=== PATIENT | male | born 1980 | race African-American/Black ===

== ENCOUNTER 2022-03-06 11:54 | Inpatient (IN) | payer OTHER ==
[2022-03-06 13:17] VITALS: BMI 25.7
[2022-03-06] MEDS ORDERED: NALOXONE HCL (KLOXXADO) 8 MG SPRAY NS PRN (15:38)
[2022-03-06] MEDS ORDERED: DICYCLOMINE HCL 10 MG CAPSULE PO PRN (15:38)
[2022-03-06] MEDS ORDERED: ACETAMINOPHEN 325 MG TABLET (FP) PO PRN ×2 (15:38)
[2022-03-06] MEDS ORDERED: IBUPROFEN 600 MG TABLET (FP) PO PRN (15:38)
[2022-03-06] MEDS ORDERED: NICOTINE 10 MG CARTRIDGE (INHALER) IH PRN (15:38)
[2022-03-06] MEDS ORDERED: BISMUTH SUBSALICYLATE 262 MG/15 ML BTL PO PRN (15:38)
[2022-03-06] MEDS ORDERED: ONDANSETRON *ODT* 4 MG TABLET SL PRN (15:38)
[2022-03-06] MEDS ORDERED: MAGNESIUM HYDROX 2400MG/30ML ORAL SUSPENSION 30 ML CUP PO PRN (15:38)
[2022-03-06] MEDS ORDERED: MAGNESIUM CITRATE 300 ML BOTTLE PO PRN (15:38)
[2022-03-06] MEDS ORDERED: LOPERAMIDE HCL 2 MG CAPSULE PO PRN (15:38)
[2022-03-06] MEDS ORDERED: MAG HYDROX/AL HYDROX/SIMETH 30 ML UNIT-DOSE CUP PO PRN (15:38)
[2022-03-06] MEDS ORDERED: BENZOCAINE/MENTHOL (CHLORASEPTIC ) LOZENGE MM PRN (15:38)
[2022-03-06] MEDS ORDERED: IBUPROFEN 400 MG TABLET (FP) PO PRN (15:38)
[2022-03-06] MEDS: METHOCARBAMOL 500 MG TABLET PO PRN (16:59)
[2022-03-06] MEDS: hydrOXYzine PAMOATE 25 MG CAPSULE (FP) PO PRN (16:59)
[2022-03-06] MEDS: MELATONIN 5 MG TABLETS PO SCH (23:54)
[2022-03-06] MEDS: THIAMINE HCL 100 MG TABLET (FP) PO SCH (23:54)
[2022-03-07] MEDS ORDERED: chlordiazePOXIDE HCL 25 MG CAPSULE PO PRN (09:24)
[2022-03-07 10:14] LABS: HEMATOCRIT 36.1 % (35.4-49); HEMOGLOBIN 11.3 GM/dL (11.7-16.9); MCH 27.6 pg (25.7-33.7); MCHC 31.2 g/dl (32.0-35.9); MEAN CELL VOLUME 88.5 fl (80-96); MEAN PLT VOLUME 8.2 fl (7.5-11.1); PLATELET COUNT 301 10^3/uL (134-434); RBC 4.08 M/mm3 (4.00-5.60); RDW 18.4 % (11.9-15.9); WHITE BLOOD COUNT 4.8 K/mm3 (4.0-10.0)
[2022-03-07] MEDS: PRENATAL VITAMINS W/ FOLIC ACID TABLET (FP) PO SCH (10:43)
[2022-03-07] MEDS: chlordiazePOXIDE HCL 25 MG CAPSULE PO SCH ×3 (10:50→23:03)
[2022-03-07] MEDS: METHOCARBAMOL 500 MG TABLET PO PRN ×2 (10:51→23:13)
[2022-03-07] MEDS: hydrOXYzine PAMOATE 25 MG CAPSULE (FP) PO PRN (10:51)
[2022-03-07 11:08] LABS: CALCIUM 9.1 mg/dL (8.5-10.1)
[2022-03-07 11:10] LABS: ALBUMIN 2.8 g/dl (3.4-5.0)
[2022-03-07 11:13] LABS: CREATININE 0.9 mg/dL (0.55-1.3)
[2022-03-07 11:14] LABS: BILIRUBIN,TOTAL 0.7 mg/dL (0.2-1); TOT PROT 6.6 g/dl (6.4-8.2)
[2022-03-07 11:16] LABS: BLOOD UREA NITROGEN 14.9 mg/dL (7-18)
[2022-03-07] MEDS: THIAMINE HCL 100 MG TABLET (FP) PO SCH (23:02)
[2022-03-07] MEDS: MELATONIN 5 MG TABLETS PO SCH (23:37)
[2022-03-08] MEDS: chlordiazePOXIDE HCL 25 MG CAPSULE PO SCH ×2 (06:42→10:59)
[2022-03-08 09:33] VITALS: TEMP 96.1
[2022-03-08] MEDS: PRENATAL VITAMINS W/ FOLIC ACID TABLET (FP) PO SCH (10:52)
[2022-03-08] MEDS: METHOCARBAMOL 500 MG TABLET PO PRN (10:54)
[2022-03-08] MEDS: hydrOXYzine PAMOATE 25 MG CAPSULE (FP) PO PRN (10:54)
[2022-03-08 13:07] VITALS: BP 131/87; PULSE 86; RESP 16
[2022-03-09] MEDS ORDERED: chlordiazePOXIDE HCL 25 MG CAPSULE PO SCH (05:00)
[2022-03-10] MEDS ORDERED: chlordiazePOXIDE HCL 10 MG CAPSULE PO PRN
[2022-03-10] MEDS ORDERED: chlordiazePOXIDE HCL 10 MG CAPSULE PO SCH (05:00)
[2022-03-11] MEDS ORDERED: chlordiazePOXIDE HCL 10 MG CAPSULE PO SCH (05:00)
[2022-03-12] MEDS ORDERED: chlordiazePOXIDE HCL 10 MG CAPSULE PO ONE (05:00)
== END 2022-03-08 15:35 | disposition left against medical advice (07) | DRG 770 ==
LOC: YASAS 11:54 → Y6N 16:06
PROVIDERS: ADMIT Allergy & Immunology; ATTEND Surgery
PROC: HZ2ZZZZ Detoxification Services for Substance Abuse Treatment (ICD-10-PCS; principal; 2022-03-06)
DX: F10.230 Alcohol dependence with withdrawal, uncomplicated (principal); F14.20 Cocaine dependence, uncomplicated; F16.20 Hallucinogen dependence, uncomplicated; F17.210 Nicotine dependence, cigarettes, uncomplicated; I10 Essential (primary) hypertension; Z21 Asymptomatic human immunodeficiency virus [HIV] infection status; R21 Rash and other nonspecific skin eruption; Z99.89 Dependence on other enabling machines and devices; Z28.310 Unvaccinated for COVID-19; Z28.9 Immunization not carried out for unspecified reason
CPT/HCPCS: 36415; 80053; 85027; 86780; 87811; C9803-CS; U0003; U0005

== ENCOUNTER 2022-03-28 10:53 | Inpatient (IN) | payer OTHER ==
[2022-03-28 11:58] VITALS: BMI 26.4
[2022-03-28] MEDS ORDERED: ACETAMINOPHEN 325 MG TABLET (FP) PO PRN (13:04)
[2022-03-28] MEDS ORDERED: LOPERAMIDE HCL 2 MG CAPSULE PO PRN (13:04)
[2022-03-28] MEDS ORDERED: ONDANSETRON *ODT* 4 MG TABLET SL PRN (13:04)
[2022-03-28] MEDS ORDERED: DICYCLOMINE HCL 10 MG CAPSULE PO PRN (13:04)
[2022-03-28] MEDS ORDERED: MAGNESIUM HYDROX 2400MG/30ML ORAL SUSPENSION 30 ML CUP PO PRN (13:04)
[2022-03-28] MEDS ORDERED: NICOTINE 10 MG CARTRIDGE (INHALER) IH PRN (13:04)
[2022-03-28] MEDS ORDERED: NALOXONE HCL (KLOXXADO) 8 MG SPRAY NS PRN (13:04)
[2022-03-28] MEDS ORDERED: MAG HYDROX/AL HYDROX/SIMETH 30 ML UNIT-DOSE CUP PO PRN (13:04)
[2022-03-28] MEDS ORDERED: BENZOCAINE/MENTHOL (CHLORASEPTIC ) LOZENGE MM PRN (13:04)
[2022-03-28] MEDS ORDERED: BISMUTH SUBSALICYLATE 524 MG/30 ML PO PRN (13:04)
[2022-03-28] MEDS ORDERED: MAGNESIUM CITRATE 300 ML BOTTLE PO PRN (13:04)
[2022-03-28 15:32] LABS: HEMATOCRIT 34.2 % (35.4-49); MCH 28.8 pg (25.7-33.7); MCHC 32.1 g/dl (32.0-35.9); MEAN CELL VOLUME 89.8 fl (80-96); MEAN PLT VOLUME 7.7 fl (7.5-11.1); PLATELET COUNT 547 10^3/uL (134-434); RDW 17.4 % (11.9-15.9); WHITE BLOOD COUNT 4.9 K/mm3 (4.0-10.0)
[2022-03-28 15:36] LABS: ALBUMIN 3.2 g/dl (3.4-5.0); CALCIUM 9.2 mg/dL (8.5-10.1)
[2022-03-28 15:40] LABS: CREATININE 0.9 mg/dL (0.55-1.3)
[2022-03-28 15:41] LABS: BILIRUBIN,TOTAL 0.5 mg/dL (0.2-1)
[2022-03-28] MEDS: DOXYCYCLINE HYCLATE 100 MG TABLET PO SCH (17:47)
[2022-03-28] MEDS: MELATONIN 5 MG TABLETS PO SCH (23:37)
[2022-03-28] MEDS: THIAMINE HCL 100 MG TABLET (FP) PO SCH (23:38)
[2022-03-28] MEDS: AMOX TR/POT CLAV 875MG/125MG TABLETS (FP) PO SCH (23:40)
[2022-03-29] MEDS: IBUPROFEN 600 MG TABLET (FP) PO PRN ×3 (01:14→18:26)
[2022-03-29] MEDS: DOXYCYCLINE HYCLATE 100 MG TABLET PO SCH ×2 (06:04→17:57)
[2022-03-29] MEDS: METHOCARBAMOL 500 MG TABLET PO PRN ×3 (06:05→19:38)
[2022-03-29] MEDS: ACETAMINOPHEN 325 MG TABLET (FP) PO PRN ×3 (06:05→19:38)
[2022-03-29] MEDS: AMOX TR/POT CLAV 875MG/125MG TABLETS (FP) PO SCH ×2 (09:40→22:56)
[2022-03-29] MEDS: PRENATAL VITAMINS W/ FOLIC ACID TABLET (FP) PO SCH (09:40)
[2022-03-29] MEDS ORDERED: chlordiazePOXIDE HCL 25 MG CAPSULE PO PRN (10:39)
[2022-03-29] MEDS ORDERED: chlordiazePOXIDE HCL 25 MG CAPSULE PO SCH (11:00)
[2022-03-29] MEDS: chlordiazePOXIDE HCL 25 MG CAPSULE PO SCH ×3 (12:48→22:57)
[2022-03-29] MEDS: MELATONIN 5 MG TABLETS PO SCH (22:57)
[2022-03-29] MEDS: THIAMINE HCL 100 MG TABLET (FP) PO SCH (22:57)
[2022-03-30] MEDS: chlordiazePOXIDE HCL 25 MG CAPSULE PO SCH ×4 (06:08→22:55)
[2022-03-30] MEDS: DOXYCYCLINE HYCLATE 100 MG TABLET PO SCH ×2 (06:09→18:15)
[2022-03-30] MEDS: hydrOXYzine PAMOATE 25 MG CAPSULE (FP) PO PRN (06:12)
[2022-03-30] MEDS: METHOCARBAMOL 500 MG TABLET PO PRN ×2 (06:12→22:57)
[2022-03-30] MEDS: IBUPROFEN 400 MG TABLET (FP) PO PRN (06:12)
[2022-03-30] MEDS: AMOX TR/POT CLAV 875MG/125MG TABLETS (FP) PO SCH ×2 (11:11→22:55)
[2022-03-30] MEDS: PRENATAL VITAMINS W/ FOLIC ACID TABLET (FP) PO SCH (11:11)
[2022-03-30] MEDS: MELATONIN 5 MG TABLETS PO SCH (22:55)
[2022-03-30] MEDS: THIAMINE HCL 100 MG TABLET (FP) PO SCH (22:55)
[2022-03-31] MEDS: hydrOXYzine PAMOATE 25 MG CAPSULE (FP) PO PRN ×2 (01:41→10:27)
[2022-03-31] MEDS: IBUPROFEN 600 MG TABLET (FP) PO PRN ×2 (01:41→19:24)
[2022-03-31] MEDS: chlordiazePOXIDE HCL 25 MG CAPSULE PO SCH ×4 (06:06→22:40)
[2022-03-31] MEDS: DOXYCYCLINE HYCLATE 100 MG TABLET PO SCH ×2 (06:06→18:17)
[2022-03-31] MEDS: ACETAMINOPHEN 325 MG TABLET (FP) PO PRN (06:08)
[2022-03-31] MEDS: AMOX TR/POT CLAV 875MG/125MG TABLETS (FP) PO SCH ×2 (10:27→22:40)
[2022-03-31] MEDS: PRENATAL VITAMINS W/ FOLIC ACID TABLET (FP) PO SCH (10:27)
[2022-03-31] MEDS: METHOCARBAMOL 500 MG TABLET PO PRN ×2 (10:27→19:24)
[2022-03-31] MEDS: MELATONIN 5 MG TABLETS PO SCH (22:40)
[2022-03-31] MEDS: THIAMINE HCL 100 MG TABLET (FP) PO SCH (22:40)
[2022-04-01] MEDS ORDERED: chlordiazePOXIDE HCL 10 MG CAPSULE PO PRN
[2022-04-01] MEDS: chlordiazePOXIDE HCL 10 MG CAPSULE PO SCH ×4 (06:11→22:06)
[2022-04-01] MEDS: DOXYCYCLINE HYCLATE 100 MG TABLET PO SCH ×2 (06:12→17:22)
[2022-04-01] MEDS: AMOX TR/POT CLAV 875MG/125MG TABLETS (FP) PO SCH ×2 (10:22→22:05)
[2022-04-01] MEDS: PRENATAL VITAMINS W/ FOLIC ACID TABLET (FP) PO SCH (10:22)
[2022-04-01] MEDS: METHOCARBAMOL 500 MG TABLET PO PRN ×2 (10:22→22:06)
[2022-04-01] MEDS: hydrOXYzine PAMOATE 25 MG CAPSULE (FP) PO PRN (10:22)
[2022-04-01] MEDS: THIAMINE HCL 100 MG TABLET (FP) PO SCH (22:04)
[2022-04-01] MEDS: MELATONIN 5 MG TABLETS PO SCH (22:04)
[2022-04-02] MEDS: hydrOXYzine PAMOATE 25 MG CAPSULE (FP) PO PRN ×2 (00:37→10:36)
[2022-04-02] MEDS: IBUPROFEN 600 MG TABLET (FP) PO PRN ×2 (00:37→13:46)
[2022-04-02] MEDS: chlordiazePOXIDE HCL 10 MG CAPSULE PO SCH ×2 (06:25→17:41)
[2022-04-02] MEDS: DOXYCYCLINE HYCLATE 100 MG TABLET PO SCH ×2 (06:25→17:40)
[2022-04-02] MEDS: METHOCARBAMOL 500 MG TABLET PO PRN ×3 (06:26→22:54)
[2022-04-02] MEDS: IBUPROFEN 400 MG TABLET (FP) PO PRN ×2 (06:26→22:54)
[2022-04-02] MEDS: AMOX TR/POT CLAV 875MG/125MG TABLETS (FP) PO SCH ×2 (10:36→22:54)
[2022-04-02] MEDS: PRENATAL VITAMINS W/ FOLIC ACID TABLET (FP) PO SCH (10:36)
[2022-04-02 21:02] VITALS: RESP 18
[2022-04-02] MEDS: MELATONIN 5 MG TABLETS PO SCH (22:54)
[2022-04-02] MEDS: THIAMINE HCL 100 MG TABLET (FP) PO SCH (22:54)
[2022-04-03] MEDS: IBUPROFEN 600 MG TABLET (FP) PO PRN (03:59)
[2022-04-03] MEDS ORDERED: chlordiazePOXIDE HCL 10 MG CAPSULE PO ONE (05:00)
[2022-04-03] MEDS: DOXYCYCLINE HYCLATE 100 MG TABLET PO SCH (06:27)
[2022-04-03] MEDS: METHOCARBAMOL 500 MG TABLET PO PRN (06:27)
[2022-04-03 09:39] VITALS: BP 121/86; PULSE 84; TEMP 97.7
[2022-04-03] MEDS: AMOX TR/POT CLAV 875MG/125MG TABLETS (FP) PO SCH (10:47)
[2022-04-03] MEDS: PRENATAL VITAMINS W/ FOLIC ACID TABLET (FP) PO SCH (10:47)
== END 2022-04-03 10:50 | disposition home or self-care (01) | DRG 774 ==
LOC: YASAS 10:53 → Y6N 13:28
PROVIDERS: ADMIT Allergy & Immunology; ATTEND Surgery
PROC: HZ2ZZZZ Detoxification Services for Substance Abuse Treatment (ICD-10-PCS; principal; 2022-03-28)
DX: F10.230 Alcohol dependence with withdrawal, uncomplicated (principal); F14.20 Cocaine dependence, uncomplicated; F16.20 Hallucinogen dependence, uncomplicated; F17.210 Nicotine dependence, cigarettes, uncomplicated; M86.672 Other chronic osteomyelitis, left ankle and foot; Z99.89 Dependence on other enabling machines and devices; Z28.310 Unvaccinated for COVID-19; Z28.9 Immunization not carried out for unspecified reason
CPT/HCPCS: 36415; 80053; 85027; 86780; C9803-CS; U0003; U0005

== ENCOUNTER 2022-05-16 11:52 | Inpatient (IN) | payer OTHER ==
[2022-05-16 14:53] VITALS: BMI 27.3
[2022-05-16] MEDS ORDERED: hydrOXYzine PAMOATE 25 MG CAPSULE (FP) PO PRN (15:07)
[2022-05-16] MEDS ORDERED: NALOXONE HCL (KLOXXADO) 8 MG SPRAY NS PRN (15:07)
[2022-05-16] MEDS ORDERED: ACETAMINOPHEN 325 MG TABLET (FP) PO PRN ×2 (15:07)
[2022-05-16] MEDS ORDERED: NICOTINE 10 MG CARTRIDGE (INHALER) IH PRN (15:07)
[2022-05-16] MEDS ORDERED: METHOCARBAMOL 500 MG TABLET PO PRN (15:07)
[2022-05-16] MEDS ORDERED: ONDANSETRON *ODT* 4 MG TABLET SL PRN (15:07)
[2022-05-16] MEDS ORDERED: IBUPROFEN 400 MG TABLET (FP) PO PRN (15:07)
[2022-05-16] MEDS ORDERED: IBUPROFEN 600 MG TABLET (FP) PO PRN (15:07)
[2022-05-16] MEDS ORDERED: diazePAM 5 MG TABLET PO PRN (15:07)
[2022-05-16] MEDS ORDERED: LOPERAMIDE HCL 2 MG CAPSULE PO PRN (15:07)
[2022-05-16] MEDS ORDERED: DICYCLOMINE HCL 10 MG CAPSULE PO PRN (15:07)
[2022-05-16] MEDS ORDERED: MAGNESIUM HYDROX 2400MG/30ML ORAL SUSPENSION 30 ML CUP PO PRN (15:07)
[2022-05-16] MEDS ORDERED: BISMUTH SUBSALICYLATE 524 MG/30 ML PO PRN (15:07)
[2022-05-16] MEDS ORDERED: BENZOCAINE/MENTHOL (CHLORASEPTIC ) LOZENGE MM PRN (15:07)
[2022-05-16] MEDS ORDERED: MAG HYDROX/AL HYDROX/SIMETH 30 ML UNIT-DOSE CUP PO PRN (15:07)
[2022-05-16] MEDS ORDERED: POLYETHYLENE GLYCOL (HEALTHYLAX) 3350 17 GM PACKET PO PRN (15:07)
[2022-05-16] MEDS: diazePAM 5 MG TABLET PO SCH ×2 (18:03→23:23)
[2022-05-16] MEDS: DOXYCYCLINE HYCLATE 100 MG TABLET PO SCH (18:03)
[2022-05-16] MEDS: NICOTINE 7 MG/24 HOURS TOPICAL PATCH TD SCH (18:04)
[2022-05-16] MEDS: PRENATAL VITAMINS W/ FOLIC ACID TABLET (FP) PO SCH (18:04)
[2022-05-16] MEDS ORDERED: DOXYCYCLINE HYCLATE 100 MG CAPSULE PO SCH (22:00)
[2022-05-16] MEDS ORDERED: MELATONIN 5 MG TABLETS PO SCH (22:00)
[2022-05-16] MEDS ORDERED: THIAMINE HCL 100 MG TABLET (FP) PO SCH (22:00)
[2022-05-16] MEDS: AMOX TR/POT CLAV 875MG/125MG TABLETS (FP) PO SCH (23:21)
[2022-05-17] MEDS: diazePAM 5 MG TABLET PO SCH ×3 (05:45→17:00)
[2022-05-17] MEDS: DOXYCYCLINE HYCLATE 100 MG TABLET PO SCH (10:48)
[2022-05-17] MEDS: AMOX TR/POT CLAV 875MG/125MG TABLETS (FP) PO SCH (11:03)
[2022-05-17] MEDS: PRENATAL VITAMINS W/ FOLIC ACID TABLET (FP) PO SCH (11:03)
[2022-05-17] MEDS: NICOTINE 7 MG/24 HOURS TOPICAL PATCH TD SCH (11:05)
[2022-05-17 11:46] LABS: HEMATOCRIT 36.1 % (35.4-49); HEMOGLOBIN 11.4 GM/dL (11.7-16.9); MCHC 31.6 g/dl (32.0-35.9); MEAN PLT VOLUME 7.7 fl (7.5-11.1); PLATELET COUNT 429 10^3/uL (134-434); RBC 3.92 M/mm3 (4.00-5.60); RDW 16.7 % (11.9-15.9); WHITE BLOOD COUNT 4.6 K/mm3 (4.0-10.0)
[2022-05-17 11:55] LABS: BLOOD UREA NITROGEN 11.2 mg/dL (7-18)
[2022-05-17 11:56] LABS: ALBUMIN 3.1 g/dl (3.4-5.0)
[2022-05-17 11:59] LABS: CREATININE 0.9 mg/dL (0.55-1.3)
[2022-05-17 12:00] LABS: BILIRUBIN,TOTAL 0.9 mg/dL (0.2-1)
[2022-05-17 12:01] LABS: TOT PROT 6.8 g/dl (6.4-8.2)
[2022-05-17 17:12] VITALS: BP 156/95; PULSE 84; RESP 17; TEMP 97.7
[2022-05-18] MEDS ORDERED: diazePAM 5 MG TABLET PO SCH (06:00)
[2022-05-19] MEDS ORDERED: diazePAM 5 MG TABLET PO SCH (06:00)
[2022-05-20] MEDS ORDERED: diazePAM 5 MG TABLET PO ONE (06:00)
== END 2022-05-17 18:16 | disposition left against medical advice (07) | DRG 770 ==
LOC: YASAS 11:52 → Y6N 15:47
PROVIDERS: ADMIT Allergy & Immunology; ATTEND Surgery
PROC: HZ2ZZZZ Detoxification Services for Substance Abuse Treatment (ICD-10-PCS; principal; 2022-05-16)
DX: F10.230 Alcohol dependence with withdrawal, uncomplicated (principal); F14.20 Cocaine dependence, uncomplicated; F16.20 Hallucinogen dependence, uncomplicated; F12.20 Cannabis dependence, uncomplicated; F17.210 Nicotine dependence, cigarettes, uncomplicated; I10 Essential (primary) hypertension; R60.0 Localized edema; R26.89 Other abnormalities of gait and mobility; Z99.89 Dependence on other enabling machines and devices; Z28.310 Unvaccinated for COVID-19; Z28.9 Immunization not carried out for unspecified reason; Z59.01 Sheltered homelessness
CPT/HCPCS: 36415; 80053; 82140; 85027; 86780; 87811; C9803-CS; U0003; U0005

== ENCOUNTER 2022-06-07 12:50 | Inpatient (IN) | payer OTHER ==
[2022-06-07 13:51] VITALS: BMI 26.4
[2022-06-07] MEDS ORDERED: NALOXONE HCL (KLOXXADO) 8 MG SPRAY NS PRN (15:31)
[2022-06-07] MEDS ORDERED: DICYCLOMINE HCL 10 MG CAPSULE PO PRN (15:31)
[2022-06-07] MEDS ORDERED: BISMUTH SUBSALICYLATE 524 MG/30 ML PO PRN (15:31)
[2022-06-07] MEDS ORDERED: NICOTINE 10 MG CARTRIDGE (INHALER) IH PRN (15:31)
[2022-06-07] MEDS ORDERED: ONDANSETRON *ODT* 4 MG TABLET SL PRN (15:31)
[2022-06-07] MEDS ORDERED: POLYETHYLENE GLYCOL (HEALTHYLAX) 3350 17 GM PACKET PO PRN (15:31)
[2022-06-07] MEDS ORDERED: IBUPROFEN 400 MG TABLET (FP) PO PRN (15:31)
[2022-06-07] MEDS ORDERED: MAGNESIUM HYDROX 2400MG/30ML ORAL SUSPENSION 30 ML CUP PO PRN (15:31)
[2022-06-07] MEDS ORDERED: BENZOCAINE/MENTHOL (CHLORASEPTIC ) LOZENGE MM PRN (15:31)
[2022-06-07] MEDS ORDERED: LOPERAMIDE HCL 2 MG CAPSULE PO PRN (15:31)
[2022-06-07] MEDS ORDERED: IBUPROFEN 600 MG TABLET (FP) PO PRN (15:31)
[2022-06-07] MEDS ORDERED: NICOTINE POLACRILEX 2 MG GUM BUC PRN (15:31)
[2022-06-07] MEDS ORDERED: MAG HYDROX/AL HYDROX/SIMETH 30 ML UNIT-DOSE CUP PO PRN (15:31)
[2022-06-07] MEDS ORDERED: ACETAMINOPHEN 325 MG TABLET (FP) PO PRN ×2 (15:31)
[2022-06-07] MEDS: diazePAM 5 MG TABLET PO SCH ×2 (17:15→22:46)
[2022-06-07] MEDS: METHOCARBAMOL 500 MG TABLET PO PRN (17:56)
[2022-06-07] MEDS: PRENATAL VITAMINS W/ FOLIC ACID TABLET (FP) PO SCH (17:56)
[2022-06-07] MEDS: THIAMINE HCL 100 MG TABLET (FP) PO SCH (22:45)
[2022-06-07] MEDS: MELATONIN 5 MG TABLETS PO SCH (22:45)
[2022-06-08] MEDS: diazePAM 5 MG TABLET PO SCH ×4 (05:49→22:41)
[2022-06-08] MEDS: PRENATAL VITAMINS W/ FOLIC ACID TABLET (FP) PO SCH (10:58)
[2022-06-08] MEDS: METHOCARBAMOL 500 MG TABLET PO PRN ×2 (10:58→22:39)
[2022-06-08] MEDS ORDERED: cloNIDine HCL 0.1 MG TABLET PO ONE (21:53)
[2022-06-08] MEDS: THIAMINE HCL 100 MG TABLET (FP) PO SCH (22:39)
[2022-06-08] MEDS: MELATONIN 5 MG TABLETS PO SCH (22:39)
[2022-06-09] MEDS: diazePAM 5 MG TABLET PO SCH ×2 (05:36→13:26)
[2022-06-09] MEDS: PRENATAL VITAMINS W/ FOLIC ACID TABLET (FP) PO SCH (11:19)
[2022-06-09 11:23] LABS: HEMATOCRIT 34.4 % (35.4-49); HEMOGLOBIN 11.2 GM/dL (11.7-16.9); MCH 30.6 pg (25.7-33.7); MCHC 32.6 g/dl (32.0-35.9); MEAN CELL VOLUME 93.8 fl (80-96); MEAN PLT VOLUME 7.9 fl (7.5-11.1); PLATELET COUNT 324 10^3/uL (134-434); RBC 3.67 M/mm3 (4.00-5.60); RDW 17.1 % (11.9-15.9); WHITE BLOOD COUNT 4.2 K/mm3 (4.0-10.0)
[2022-06-09 12:04] LABS: ALBUMIN 3.2 g/dl (3.4-5.0); BLOOD UREA NITROGEN 10.2 mg/dL (7-18); CALCIUM 9.1 mg/dL (8.5-10.1)
[2022-06-09 12:07] LABS: CREATININE 0.8 mg/dL (0.55-1.3)
[2022-06-09 12:09] LABS: BILIRUBIN,TOTAL 0.5 mg/dL (0.2-1); TOT PROT 6.8 g/dl (6.4-8.2)
[2022-06-09 13:11] VITALS: BP 131/85; PULSE 84; RESP 17; TEMP 98.1
[2022-06-09] MEDS ORDERED: LACTULOSE 20 GM/30 ML UDC (FOR ORAL USE ONLY) PO ONE (13:15)
[2022-06-09] MEDS ORDERED: LACTULOSE 20 GM/30 ML UDC (FOR ORAL USE ONLY) PO SCH (17:00)
[2022-06-10] MEDS ORDERED: diazePAM 5 MG TABLET PO SCH (06:00)
[2022-06-11] MEDS ORDERED: diazePAM 5 MG TABLET PO ONE (06:00)
== END 2022-06-09 16:03 | disposition left against medical advice (07) | DRG 770 ==
LOC: YASAS 12:50 → Y6N 15:51
PROVIDERS: ADMIT Allergy & Immunology; ATTEND Surgery
PROC: HZ2ZZZZ Detoxification Services for Substance Abuse Treatment (ICD-10-PCS; principal; 2022-06-07)
DX: F10.230 Alcohol dependence with withdrawal, uncomplicated (principal); F14.20 Cocaine dependence, uncomplicated; F16.10 Hallucinogen abuse, uncomplicated; F17.210 Nicotine dependence, cigarettes, uncomplicated; I10 Essential (primary) hypertension; K21.9 Gastro-esophageal reflux disease without esophagitis; R79.89 Other specified abnormal findings of blood chemistry; I89.0 Lymphedema, not elsewhere classified; Z99.89 Dependence on other enabling machines and devices; Z28.310 Unvaccinated for COVID-19; Z28.9 Immunization not carried out for unspecified reason
CPT/HCPCS: 36415; 80053; 82140; 85027; 86780; C9803-CS; U0003; U0005

== ENCOUNTER 2022-12-20 11:50 | Inpatient (IN) | payer OTHER ==
[2022-12-20 12:56] VITALS: BMI 25.6
[2022-12-20] MEDS ORDERED: ACETAMINOPHEN 325 MG TABLET (FP) PO PRN (13:21)
[2022-12-20] MEDS ORDERED: MAGNESIUM HYDROX 2400MG/30ML ORAL SUSPENSION 30 ML CUP PO PRN (13:21)
[2022-12-20] MEDS ORDERED: LOPERAMIDE HCL 2 MG CAPSULE PO PRN (13:21)
[2022-12-20] MEDS ORDERED: AMMONIUM LACTATE 12% LOTION 225 GM BOTTLE TP PRN (13:21)
[2022-12-20] MEDS ORDERED: POLYETHYLENE GLYCOL (HEALTHYLAX) 3350 17 GM PACKET PO PRN (13:21)
[2022-12-20] MEDS ORDERED: IBUPROFEN 600 MG TABLET (FP) PO PRN (13:21)
[2022-12-20] MEDS ORDERED: NALOXONE HCL (KLOXXADO) 8 MG SPRAY NS PRN (13:21)
[2022-12-20] MEDS ORDERED: BENZOCAINE/MENTHOL (CHLORASEPTIC ) LOZENGE MM PRN (13:21)
[2022-12-20] MEDS ORDERED: guaiFENesin 600 MG TABLET.ER (FP) PO PRN (13:21)
[2022-12-20] MEDS ORDERED: MAG HYDROX/AL HYDROX/SIMETH 30 ML UNIT-DOSE CUP PO PRN (13:21)
[2022-12-20] MEDS ORDERED: BENZONATATE 200 MG CAPSULE PO PRN (13:21)
[2022-12-20] MEDS ORDERED: COLLOIDAL OATMEAL 1 BAR EACH TP PRN (13:21)
[2022-12-20] MEDS ORDERED: NALOXONE HCL 0.4 MG/ML VIAL IM PRN (13:21)
[2022-12-20] MEDS ORDERED: IBUPROFEN 400 MG TABLET (FP) PO PRN (13:21)
[2022-12-20] MEDS ORDERED: hydrOXYzine PAMOATE 25 MG CAPSULE (FP) PO PRN (13:21)
[2022-12-20] MEDS: PRENATAL VITAMINS W/ FOLIC ACID TABLET (FP) PO SCH (13:45)
[2022-12-20] MEDS: NICOTINE 14 MG/24 HOURS TOPICAL PATCH TD SCH (13:45)
[2022-12-20] MEDS ORDERED: THIAMINE HCL 100 MG TABLET (FP) PO SCH (22:00)
[2022-12-20] MEDS ORDERED: MELATONIN 5 MG TABLETS PO SCH (22:00)
[2022-12-20] MEDS: cloNIDine HCL 0.1 MG TABLET PO PRN (22:02)
[2022-12-21 01:19] VITALS: RESP 17
[2022-12-21 06:55] VITALS: TEMP 97.3
[2022-12-21] MEDS: cloNIDine HCL 0.1 MG TABLET PO PRN (06:56)
[2022-12-21] MEDS: PRENATAL VITAMINS W/ FOLIC ACID TABLET (FP) PO SCH (10:10)
[2022-12-21] MEDS: NICOTINE 14 MG/24 HOURS TOPICAL PATCH TD SCH (10:10)
[2022-12-21 10:54] LABS: EPI CELLS 1 /uL (0-25.1); HYALINE CASTS 0 /uL (0-3.1); URINE APPEARANCE CLEAR; URINE BACTERIA 4 /uL (0-1359); URINE BILIRUBIN NEGATIVE (NEGATIVE); URINE COLOR YELLOW; URINE GLUCOSE (UA) NEGATIVE (NEGATIVE); URINE KETONE NEGATIVE (NEGATIVE); URINE LEUK ESTERASE TRACE (NEGATIVE); URINE NITRITE NEGATIVE (NEGATIVE); URINE PROTEIN NEGATIVE (NEGATIVE); URINE RBC 4 /uL (0-23.9); URINE UROBILINOGEN 0.2 mg/dL (0.2-1.0); URINE WBC 6 /uL (0-25.8)
[2022-12-21 12:47] VITALS: BP 135/87; PULSE 71
[2022-12-21] MEDS ORDERED: DOXYCYCLINE HYCLATE 100 MG CAPSULE PO SCH (18:00)
[2022-12-21] MEDS ORDERED: CEFUROXIME AXETIL 500 MG TABLET PO SCH (22:00)
== END 2022-12-21 05:42 | disposition left against medical advice (07) | DRG 772 ==
LOC: YASAS 11:50 → Y3E 14:55
PROVIDERS: ADMIT Allergy & Immunology; ATTEND Psychiatry & Neurology Pain Medicine
PROC: HZ42ZZZ Group Counseling for Substance Abuse Treatment, Cognitive-Behavioral (ICD-10-PCS; principal; 2022-12-20)
DX: F14.20 Cocaine dependence, uncomplicated (principal); F16.20 Hallucinogen dependence, uncomplicated; F12.20 Cannabis dependence, uncomplicated; F17.210 Nicotine dependence, cigarettes, uncomplicated; F19.24 Other psychoactive substance dependence with psychoactive substance-induced mood disorder; F41.8 Other specified anxiety disorders; I10 Essential (primary) hypertension; I89.0 Lymphedema, not elsewhere classified; K21.9 Gastro-esophageal reflux disease without esophagitis; Z59.01 Sheltered homelessness
CPT/HCPCS: 81003; 87635; 87811

== ENCOUNTER 2023-03-13 13:40 | Inpatient (IN) | payer OTHER ==
[2023-03-13 16:53] VITALS: BMI 26.4
[2023-03-13] MEDS ORDERED: NALOXONE HCL (KLOXXADO) 8 MG SPRAY NS PRN (17:52)
[2023-03-13] MEDS ORDERED: BENZOCAINE/MENTHOL (CHLORASEPTIC ) LOZENGE MM PRN (17:52)
[2023-03-13] MEDS ORDERED: IBUPROFEN 400 MG TABLET (FP) PO PRN (17:52)
[2023-03-13] MEDS ORDERED: POLYETHYLENE GLYCOL (HEALTHYLAX) 3350 17 GM PACKET PO PRN (17:52)
[2023-03-13] MEDS ORDERED: MAG HYDROX/AL HYDROX/SIMETH 30 ML UNIT-DOSE CUP PO PRN (17:52)
[2023-03-13] MEDS ORDERED: METHOCARBAMOL 500 MG TABLET PO PRN (17:52)
[2023-03-13] MEDS ORDERED: LOPERAMIDE HCL 2 MG CAPSULE PO PRN (17:52)
[2023-03-13] MEDS ORDERED: hydrOXYzine PAMOATE 25 MG CAPSULE (FP) PO PRN (17:52)
[2023-03-13] MEDS ORDERED: BENZONATATE 200 MG CAPSULE PO PRN (17:52)
[2023-03-13] MEDS ORDERED: ACETAMINOPHEN 325 MG TABLET (FP) PO PRN (17:52)
[2023-03-13] MEDS ORDERED: MAGNESIUM HYDROX 2400MG/30ML ORAL SUSPENSION 30 ML CUP PO PRN (17:52)
[2023-03-13] MEDS ORDERED: NALOXONE HCL 0.4 MG/ML VIAL IM PRN (17:52)
[2023-03-13] MEDS ORDERED: IBUPROFEN 600 MG TABLET (FP) PO PRN (17:52)
[2023-03-13] MEDS ORDERED: guaiFENesin 600 MG TABLET.ER (FP) PO PRN (17:52)
[2023-03-13] MEDS ORDERED: DICYCLOMINE HCL 10 MG CAPSULE PO PRN (17:52)
[2023-03-13] MEDS ORDERED: ONDANSETRON *ODT* 4 MG TABLET SL PRN (17:52)
[2023-03-13] MEDS ORDERED: BISMUTH SUBSALICYLATE 524 MG/30 ML PO PRN (17:52)
[2023-03-13] MEDS ORDERED: cloNIDine HCL 0.1 MG TABLET PO ONE (19:24)
[2023-03-13] MEDS ORDERED: cloNIDine HCL 0.1 MG TABLET PO PRN (19:59)
[2023-03-13] MEDS ORDERED: THIAMINE HCL 100 MG TABLET (FP) PO SCH (22:00)
[2023-03-13] MEDS ORDERED: MELATONIN 5 MG TABLETS PO SCH (22:00)
[2023-03-14] MEDS ORDERED: PRENATAL VITAMINS W/ FOLIC ACID TABLET (FP) PO SCH (10:00)
[2023-03-14] MEDS ORDERED: TRIAMCINOLONE ACET 0.1% CREAM 15 GM TUBE TP SCH (10:45)
[2023-03-14] MEDS ORDERED: BACITRACIN 0.9 GM PACKET TP SCH ×2 (12:15→14:00)
[2023-03-14 12:16] LABS: HEMATOCRIT 37.7 % (35.4-49); HEMOGLOBIN 12.1 GM/dL (11.7-16.9); MCH 30.8 pg (25.7-33.7); MCHC 32.1 g/dl (32.0-35.9); MEAN PLT VOLUME 7.4 fl (7.5-11.1); PLATELET COUNT 461 10^3/uL (134-434); RBC 3.92 M/mm3 (4.00-5.60); RDW 14.8 % (11.9-15.9); WHITE BLOOD COUNT 4.9 K/mm3 (4.0-10.0)
[2023-03-14 12:18] LABS: CHLORIDE 105 mmol/L (98-107); POTASSIUM 3.9 mmol/L (3.5-5.1); SODIUM 138 mmol/L (136-145)
[2023-03-14 12:26] LABS: CALCIUM 8.9 mg/dL (8.5-10.1)
[2023-03-14 12:27] LABS: ANION GAP 5 mmol/L (4-13); BLOOD UREA NITROGEN 15.9 mg/dL (7-18); CO2 29 mmol/L (21-32); GLUCOSE,RANDOM 94 mg/dL (74-106)
[2023-03-14 12:30] LABS: SGPT/ALT 24 U/L (13-61)
[2023-03-14 12:31] LABS: CREATININE 0.8 mg/dL (0.55-1.3)
[2023-03-14 12:33] LABS: BILIRUBIN,TOTAL 0.7 mg/dL (0.2-1); SGOT/AST 26 U/L (15-37)
[2023-03-14 12:34] LABS: ALK PHOS 42 U/L (45-117)
[2023-03-14 17:01] VITALS: BP 146/89; PULSE 75; RESP 16; TEMP 98.2
[2023-03-14] MEDS ORDERED: PATIENT'S OWN MEDICATION (NON-FORMULARY) (Doxycycline Hyclate [Doxycycline Hyclate] 100 MG PO SCH (17:15)
[2023-03-14] MEDS ORDERED: CEFUROXIME AXETIL 500 MG TABLET PO SCH (19:00)
[2023-03-14] MEDS ORDERED: SUVOREXANT 10 MG TABLET PO PRN (22:00)
[2023-03-15] MEDS ORDERED: DOXYCYCLINE HYCLATE 100 MG CAPSULE PO SCH (10:00)
== END 2023-03-14 19:38 | disposition home or self-care (01) | DRG 774 ==
LOC: YASAS 13:40 → Y3N 18:09
PROVIDERS: ADMIT Allergy & Immunology; ATTEND Surgery
PROC: HZ2ZZZZ Detoxification Services for Substance Abuse Treatment (ICD-10-PCS; principal; 2023-03-13)
DX: F10.20 Alcohol dependence, uncomplicated (principal); F14.20 Cocaine dependence, uncomplicated; F16.20 Hallucinogen dependence, uncomplicated; F17.210 Nicotine dependence, cigarettes, uncomplicated; F19.280 Other psychoactive substance dependence with psychoactive substance-induced anxiety disorder; F19.24 Other psychoactive substance dependence with psychoactive substance-induced mood disorder; I89.0 Lymphedema, not elsewhere classified; I10 Essential (primary) hypertension; K21.9 Gastro-esophageal reflux disease without esophagitis; Z28.310 Unvaccinated for COVID-19; Z28.9 Immunization not carried out for unspecified reason
CPT/HCPCS: 36415; 80053; 80307; 85027; 86780; 87635

== ENCOUNTER 2023-10-15 14:47 | Inpatient (IN) | payer OTHER ==
[2023-10-15 15:58] VITALS: BMI 24.4
[2023-10-15] MEDS ORDERED: POLYETHYLENE GLYCOL (HEALTHYLAX) 3350 17 GM PACKET PO PRN (20:01)
[2023-10-15] MEDS ORDERED: BENZOCAINE/MENTHOL (CHLORASEPTIC ) LOZENGE MM PRN (20:01)
[2023-10-15] MEDS ORDERED: MAGNESIUM HYDROX 2400MG/30ML ORAL SUSPENSION 30 ML CUP PO PRN (20:01)
[2023-10-15] MEDS ORDERED: BENZONATATE 200 MG CAPSULE PO PRN (20:01)
[2023-10-15] MEDS ORDERED: LOPERAMIDE HCL 2 MG CAPSULE PO PRN (20:01)
[2023-10-15] MEDS ORDERED: IBUPROFEN 400 MG TABLET (FP) PO PRN (20:01)
[2023-10-15] MEDS ORDERED: guaiFENesin 600 MG TABLET.ER (FP) PO PRN (20:01)
[2023-10-15] MEDS ORDERED: NICOTINE POLACRILEX 2 MG GUM BUC PRN (20:01)
[2023-10-15] MEDS ORDERED: MAG HYDROX/AL HYDROX/SIMETH 30 ML UNIT-DOSE CUP PO PRN (20:01)
[2023-10-15] MEDS ORDERED: ACETAMINOPHEN 325 MG TABLET (FP) PO PRN (20:01)
[2023-10-15] MEDS: amLODIPine BESYLATE 5 MG TABLET (FP) PO ONE ×2 (22:00→22:01)
[2023-10-15] MEDS: MELATONIN 5 MG TABLETS PO PRN (22:01)
[2023-10-15] MEDS: THIAMINE 100 MG TABLET PO SCH (22:01)
[2023-10-16 06:28] VITALS: RESP 17
[2023-10-16 09:02] VITALS: BP 142/90; PULSE 78; TEMP 98.6
[2023-10-16] MEDS ORDERED: chlordiazePOXIDE HCL 25 MG CAPSULE PO PRN (09:37)
[2023-10-16] MEDS: PRENATAL VITAMINS W/ FOLIC ACID TABLET (FP) PO SCH (10:34)
[2023-10-16] MEDS: IBUPROFEN 600 MG TABLET (FP) PO PRN (10:40)
[2023-10-16 11:51] LABS: CHLORIDE 104 mmol/L (98-107); HEMATOCRIT 38.5 % (35.4-49); HEMOGLOBIN 12.8 GM/dL (11.7-16.9); MCH 32.3 pg (25.7-33.7); MCHC 33.1 g/dl (32.0-35.9); MEAN CELL VOLUME 97.4 fl (80-96); MEAN PLT VOLUME 7.6 fl (7.5-11.1); PLATELET COUNT 338 10^3/uL (134-434); RBC 3.96 M/mm3 (4.00-5.60); RDW 15.3 % (11.9-15.9); SODIUM 137 mmol/L (136-145); WHITE BLOOD COUNT 4.4 K/mm3 (4.0-10.0)
[2023-10-16 12:02] LABS: BLOOD UREA NITROGEN 11.8 mg/dL (7-18); GLUCOSE,RANDOM 100 mg/dL (74-106)
[2023-10-16 12:04] LABS: ANION GAP 4 mmol/L (4-13); CO2 28 mmol/L (21-32)
[2023-10-16 12:11] LABS: BILIRUBIN,TOTAL 0.8 mg/dL (0.2-1)
[2023-10-16 12:19] LABS: ALK PHOS 44 U/L (45-117); CREATININE 0.7 mg/dL (0.55-1.3); SGOT/AST 24 U/L (15-37); SGPT/ALT 23 U/L (13-61)
[2023-10-16] MEDS ORDERED: chlordiazePOXIDE HCL 25 MG CAPSULE PO SCH (17:00)
[2023-10-18] MEDS ORDERED: chlordiazePOXIDE HCL 25 MG CAPSULE PO SCH (05:00)
[2023-10-19] MEDS ORDERED: chlordiazePOXIDE HCL 10 MG CAPSULE PO PRN
[2023-10-19] MEDS ORDERED: chlordiazePOXIDE HCL 10 MG CAPSULE PO SCH (05:00)
[2023-10-20] MEDS ORDERED: chlordiazePOXIDE HCL 10 MG CAPSULE PO SCH (05:00)
[2023-10-21] MEDS ORDERED: chlordiazePOXIDE HCL 10 MG CAPSULE PO ONE (05:00)
== END 2023-10-16 16:17 | disposition left against medical advice (07) | DRG 770 ==
LOC: YASAS 14:47 → Y6N 20:23 → Y3N 21:12
PROVIDERS: ADMIT Allergy & Immunology; ATTEND Surgery
PROC: HZ2ZZZZ Detoxification Services for Substance Abuse Treatment (ICD-10-PCS; principal; 2023-10-15)
DX: F10.230 Alcohol dependence with withdrawal, uncomplicated (principal); F14.20 Cocaine dependence, uncomplicated; F17.210 Nicotine dependence, cigarettes, uncomplicated; F41.8 Other specified anxiety disorders; I10 Essential (primary) hypertension; I89.0 Lymphedema, not elsewhere classified; K21.9 Gastro-esophageal reflux disease without esophagitis; Z99.89 Dependence on other enabling machines and devices; Z59.01 Sheltered homelessness
CPT/HCPCS: 36415; 80053; 80305; 80307; 85027; 86780